=== PATIENT | female | born 1995 | race Asian ===

== ENCOUNTER 2016-09-04 08:54 | Emergency (ER) | payer OTHER ==
[~2016-09-04] VITALS: Ht 154.9 cm; Wt 47.6 kg
[2016-09-04 08:58] VITALS: BP_SYST 117
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
--- NOTE | 2016-09-04 09:00 | NUR ---
Patient to ER bed 04 to gown for evaluation. Side rails up. Report given to Omar.
--- NOTE | 2016-09-04 09:10 | NUR ---
Dr. Moreno at bedside to assess pt.
[2016-09-04 09:34] VITALS: BP_SYST 115
--- NOTE | 2016-09-04 09:35 | NUR ---
Patient given written and verbal discharge instructions and verbalizes understanding. ER MD discussed with patient the results of physical exam. Patient in stable condition. ID arm band removed. No Rx given. Patient educated on pain management and to follow up with PMD. Pain Scale 0/10. Opportunity for questions provided and answered.
== END 2016-09-04 09:35 ==
LOC: SED 08:54
DX: Z02.89 Encounter for other administrative examinations (principal); F10.10 Alcohol abuse, uncomplicated; L30.9 Dermatitis, unspecified; J45.909 Unspecified asthma, uncomplicated
CPT/HCPCS: 99283